=== PATIENT | male | born 1995 | race Caucasian/White ===

== ENCOUNTER 2020-10-02 10:14 | Inpatient (IN) | payer OTHER ==
[2020-10-02] VITALS (7 sets, daily range): BP systolic 97–158; BP diastolic 58–109
[~2020-10-02] VITALS: Ht 182.9 cm; Wt 163.8 kg
[2020-10-02] MEDS ORDERED: diphenhydrAMINE 50 MG/ML VIAL ONE (10:42)
[2020-10-02] MEDS ORDERED: HALOPERIDOL LACT 5 MG/ML VIAL. ONE (10:42)
--- NOTE | 2020-10-02 10:44 | RAD ---
CT HEAD/BRAIN WO Date: 10/02/2020 10:20 AM Clinical Indication: Reason: seizure, combative, best images obtained / Spl. Instructions: / History : Comparison: None. Technique: 5 mm axial tomographic images were obtained of the head without contrast. These were view ed on brain and bone windows. One or more of the following dose reduction techniques were utilized: A utomated exposure control (AEC), Adjustment of mA and/or kV according to patient size, Use of iterati ve reconstruction technique such as ASiR, CT scan done according to ALARA and image gently/image guidry ly Findings: The brain parenchyma is normal in attenuation. No intra- or extra-axial mass or fluid collection. No acute hemorrhage. The ventricles are normal in size, shape, and morphology. The dahl-white matter christine ction is normal. The subarachnoid cisterns are patent. The visualized paranasal sinuses are normal. The visualized portions of the orbits and globes are no rmal. The mastoid air cells are clear. The supervisor slitting and shipping topogram shows no lytic lesion or fracture. Impression: No acute intracranial process. Electronically signed by: Kade Lozada MD (10/02/2020 10:41 AM) [id number]
[2020-10-02] MEDS ORDERED: HALOPERIDOL LACT 5 MG/ML VIAL. IM ONE (10:45)
[2020-10-02] MEDS ORDERED: diphenhydrAMINE 50 MG/ML VIAL IM ONE (10:45)
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
[2020-10-02 11:48] LABS: BASO % 0 % (0-3); EOS % 0 % (0-3); HEMATOCRIT 43.3 % (39.0-53.0); HEMOGLOBIN 14.3 g/dL (13.0-17.5); LYMPH # 0.7 x10^3/uL (1.0-4.8); LYMPH % 7 % (24-48); MEAN CORPUSCULAR HEMOGLOBIN 30 pg (25-35); MEAN CORPUSCULAR HGB CONC 33 g/dL (31-37); MEAN CORPUSCULAR VOLUME 91 fL (79-100); MONO # 0.7 x10^3/uL (0.0-1.1); MONO % 7 % (0-9); NEUT # 8.5 x10^3uL (1.8-7.7); NEUT % 85 % (31-73); PLATELET COUNT 248 x10^3/uL (140-400); RED BLOOD COUNT 4.74 x10^6/uL (4.30-5.70)
[2020-10-02 12:05] LABS: CALCIUM 8.9 mg/dL (8.5-10.1); CREATININE 1.2 mg/dL (0.7-1.3); GFR 73.8
[2020-10-02 12:10] LABS: ALBUMIN 4.2 g/dL (3.4-5.0); ALBUMIN/GLOBULIN RATIO 1.2 (1.0-1.7); MAGNESIUM 2.5 mg/dL (1.8-2.4); TOTAL BILIRUBIN 0.6 mg/dL (0.2-1.0); TOTAL PROTEIN 7.7 g/dL (6.4-8.2)
[2020-10-02] MEDS ORDERED: ZIPRASIDONE IM 20 MG VIAL. IM ONE (13:45)
[2020-10-02] MEDS ORDERED: IV RINGERS SOLUTION,LACTATED 1,000 ML IV ONE ×3 (14:15→17:15)
[2020-10-02] MEDS ORDERED: IV NORMAL SALINE 250ML 250 ML ONE (14:57)
[2020-10-02] MEDS ORDERED: NORMAL SALINE IV ONE (15:00)
[2020-10-02] MEDS ORDERED: DEXMEDETOMIDINE IV ONE (15:00)
[2020-10-02] MEDS ORDERED: PHYSOSTIGMINE 2 MG/2 ML AMPUL. IV ONE (15:00)
[2020-10-02 15:05] LABS: ACETAMIN < 2.0 mcg/mL (10-30); SALIC < 2.8 mg/dL (2.8-20.0)
--- NOTE | 2020-10-02 15:38 | EKG ---
[address] [address] Test Date: 2020-10-02 Test Time: 15:28:39 Pat Name: PABLO JACKSON Department: Room: Gender: M Prep Manager: DUSTY : 1995 Requested By: LEE BENTON Order Number: [id number] Reading MD: Measurements Intervals [place] Rate: 102 P: 54 SC: 132 QRS: 34 QRSD: 96 T: 24 QT: 372 QTc: 489 Interpretive Statements SINUS TACHYCARDIA OTHERWISE NORMAL ECG RI6.02 No previous ECG available for comparison
[2020-10-02] MEDS ORDERED: ONDANSETRON PF 4 MG/2 ML VIAL. IVP PRN (15:45)
[2020-10-02 17:35] LABS: CLARITY,URINE CLEAR; COLOR,URINE YELLOW; GLUCOSE,URINE >=1000 mg/dL (NEG)
[2020-10-02 17:36] LABS: BACTERIA,URINE 0 /HPF (0-FEW); BILIRUBIN,URINE NEG (NEG); NITRITE,URINE NEG (NEG); RBC,URINE 0 /HPF (0-2); UROBILINOGEN,URINE 0.2 mg/dL (0.2 mg/dL); WBC,URINE 0 /HPF (0-4)
[2020-10-02 17:45] LABS: AMPHETAMINE/METHAMPHETAMINE NEG (NEG); BARBITURATES NEG (NEG); BENZODIAZEPINES POS (NEG); CANNABINOIDS NEG (NEG); COCAINE NEG (NEG); METHADONE NEG (NEG); OPIATES POS (NEG); PHENCYCLIDINE POS (NEG)
--- NOTE | 2020-10-02 19:49 | NUR ---
The patient, PABLO JACKSON, 24 y/o, M admitted by LAKISHA BOWMAN MD, was given written information regarding hospital policies, unit procedures and contact persons. Valuables were checked and logged. Pt is confused and impulsive trying to get up. Reassured pt. Will continue to monitor.
[2020-10-03] VITALS (24 sets, daily range): BP systolic 109–168; BP diastolic 55–116
[2020-10-03] MEDS: DEXMEDETOMIDINE 400 MCG in IV NORMAL SALINE 100ML 96 ML IV PRN ×5 (00:39→20:21)
[2020-10-03 07:11] LABS: BASO # 0.1 x10^3/uL (0.0-0.2); BASO % 1 % (0-3); EOS # 0.1 x10^3/uL (0.0-0.7); EOS % 1 % (0-3); HEMATOCRIT 41.2 % (39.0-53.0); HEMOGLOBIN 13.6 g/dL (13.0-17.5); LYMPH # 1.4 x10^3/uL (1.0-4.8); LYMPH % 13 % (24-48); MEAN CORPUSCULAR HEMOGLOBIN 30 pg (25-35); MEAN CORPUSCULAR HGB CONC 33 g/dL (31-37); MEAN CORPUSCULAR VOLUME 92 fL (79-100); MONO % 9 % (0-9); NEUT # 8.3 x10^3uL (1.8-7.7); NEUT % 77 % (31-73); PLATELET COUNT 228 x10^3/uL (140-400); WHITE BLOOD COUNT 10.8 x10^3/uL (4.0-11.0)
[2020-10-03 07:19] LABS: CALCIUM 8.2 mg/dL (8.5-10.1); CREATININE 1.2 mg/dL (0.7-1.3); GFR 73.8; POTASSIUM 3.6 mmol/L (3.5-5.1)
[2020-10-03] MEDS ORDERED: DOCUSATE SODIUM 100 MG CAPSULE PO PRN (09:15)
[2020-10-03] MEDS ORDERED: CITA10TA8 PO (10:18)
[2020-10-03] MEDS ORDERED: LORA-254 PO (10:18)
[2020-10-03] MEDS ORDERED: ROPI1TAB4 PO (10:18)
[2020-10-03] MEDS ORDERED: BREX2TAB PO (10:18)
[2020-10-03] MEDS ORDERED: ZIPRASIDONE IM 20 MG VIAL. IM PRN (15:45)
[2020-10-03] MEDS: IV NORMAL SALINE 1,000ML 1,000 ML IV SCH (16:15)
[2020-10-03] MEDS ORDERED: DEXTROSE 50% 25 GM / 50ML DISP.SYRIN. IV PRN (16:15)
[2020-10-03] MEDS: INSULIN LISPRO 300 UNITS/3 ML VIAL. SQ SCH (17:39)
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
--- NOTE | 2020-10-03 19:51 | PN ---
DATE: 10/03/2020 SUBJECTIVE: The patient is resting, slightly propped up in bed, in no apparent respiratory distress. He is awake, alert, responding at times appropriately. According to the nursing staff, he continued to have episodes of restlessness, agitation, attempts to get out of the bed; however, he continued to be on Precedex and lorazepam. He requests to take the Raymundo catheter out. Unfortunately, he retained urine again and a Raymundo catheter was to be inserted again and about 1500 mL of urine were drained. He was able to eat and drink and has multiple snacks and drank slight amount of water. PHYSICAL EXAMINATION: GENERAL: When I examined him this afternoon, he looked well and was clearly in no apparent respiratory distress. No pallor, jaundice, cyanosis or thyromegaly. No jugular venous distention. No lower limb edema. VITAL SIGNS: His heart rate was 107, blood pressure was 163/105, temperature was 98.8, respiratory rate was 18 and oxygen saturation was 90% on 5 liters of oxygen. HEAD, EYES, EARS, NOSE AND THROAT: Showed normocephalic, atraumatic. NECK: Supple. HEART: Normal first and second heart sounds. No gallop, rub or murmur. CHEST: Clear to auscultation. No crepitation or rhonchi. ABDOMEN: Distended, soft, nontender. NEUROLOGIC: He was grossly intact. His intake and output incompletely recorded. LABORATORY DATA: His lab work this morning showed his white cell count was 10,800; hemoglobin 13.6; hematocrit 41; MCV 92; and platelet count 228,000. His chemistry this morning showed a serum sodium 136, potassium 3.6, chloride 99, bicarbonate 29, anion gap of 8, BUN 15, creatinine 1.2, estimated GFR was 73 mL per minute. His glucose was 264, calcium was 8.2. His creatinine is steadily rising. His CK this morning was 4164. In summary, this is a 24-year-old male patient with: 1. Schizophrenia, for which he normally is on Rexulti 2 mg once a day. He has also depression and anxiety, for which he is on citalopram and lorazepam. He is also on Requip, which is usually given for restless legs syndrome. Other medical problems include rhabdomyolysis. He has also hyperglycemia, likely type 2 diabetes and lactic acidosis that has resolved. PLAN: I spoke with his mom and she will bring his Rexulti, which is the medication used for his schizophrenia. We will continue his citalopram, allopurinol, and lorazepam. When I reviewed all his lab work again, I will change his IV fluid to normal saline and we will also do Accu-Cheks before meals and bedtime. LAKISHA BOWMAN MD DR: KAMLESH/deandre JOB#: [id number] / [id number]
--- NOTE | 2020-10-03 22:38 | NUR ---
Pt became agitated and raised fists to this nurse and yells, "CALL MY MOM! IT IS URGENT!" This nurse reassured pt and tried to get pt to relax. Got pt laying back down. PRN ativan given per EMAR. Will continue to monitor.
[2020-10-04] VITALS (23 sets, daily range): BP systolic 117–168; BP diastolic 73–138
[2020-10-04] MEDS: DEXMEDETOMIDINE 400 MCG in IV NORMAL SALINE 100ML 96 ML IV PRN ×4 (00:34→20:32)
--- NOTE | 2020-10-04 02:16 | NUR ---
Pt gets agitated when told no. Pt asked to call family members at this time and pt states, "I don't care they are up!" Pt also states, "I don't need oxygen I'm fine." Pt's sats are 84% on room air. Will continue to monitor.
[2020-10-04] MEDS: IV NORMAL SALINE 1,000ML 1,000 ML IV SCH ×3 (03:12→20:33)
--- NOTE | 2020-10-04 04:30 | NUR ---
Pt moved his nasal cannula up on top of his head and states, "this is the only way I can get your attention."
[2020-10-04 05:28] LABS: BGAS PH 7.45 (7.35-7.46)
--- NOTE | 2020-10-04 05:49 | NUR ---
Notified of pt's low oxygen sats. ABG ordered and performed. Orders given. Pt is on a non-rebreather at this time. told this nurse to call poison control and to call PAT in the am. Will continue to monitor.
[2020-10-04] MEDS: HALOPERIDOL LACT 5 MG/ML VIAL. IVP PRN ×3 (06:21→18:18)
[2020-10-04] MEDS ORDERED: POLYETHYLENE GLYCOL 3350 17 GM PACKET. PO PRN (07:15)
[2020-10-04] MEDS: INSULIN LISPRO 300 UNITS/3 ML VIAL. SQ SCH ×3 (07:38→17:48)
[2020-10-04] MEDS: rOPINIRole 1 MG TABLET. PO SCH (07:41)
[2020-10-04] MEDS ORDERED: IOHEXOL 350 MG/ML 100 ML VIAL. IV ONE (08:00)
--- NOTE | 2020-10-04 08:00 | NUR ---
PT IS SHOUTING AT STAFF AND PULLED OUT AN IV PER NURSING STAFF LAST NIGHT. PT IS PULLING AT CORDS AND WILL NOT KEEP MONITORING ON AND CONTINUES TO NEED 15 L OF 02 VIA NRB. PT IS IMPULSIVE AND WILL JUMP OUT OF BED. CALLED DR. BOWMAN DUE TO PT'S STATUS OF INCREASING NEED FOR OXYGEN. DR. BOWMAN ORDERED CT CHEST. WILL CTM.
[2020-10-04 08:09] LABS: BASO % 0 % (0-3); EOS # 0.1 x10^3/uL (0.0-0.7); EOS % 1 % (0-3); HEMATOCRIT 42.3 % (39.0-53.0); HEMOGLOBIN 13.8 g/dL (13.0-17.5); LYMPH # 1.3 x10^3/uL (1.0-4.8); LYMPH % 8 % (24-48); MEAN CORPUSCULAR HEMOGLOBIN 30 pg (25-35); MEAN CORPUSCULAR HGB CONC 33 g/dL (31-37); MEAN CORPUSCULAR VOLUME 91 fL (79-100); MONO % 7 % (0-9); NEUT # 12.8 x10^3uL (1.8-7.7); NEUT % 84 % (31-73); PLATELET COUNT 218 x10^3/uL (140-400); RED BLOOD COUNT 4.65 x10^6/uL (4.30-5.70); RED CELL DISTRIBUTION WIDTH 14.1 % (11.5-14.5); WHITE BLOOD COUNT 15.2 x10^3/uL (4.0-11.0)
[2020-10-04 08:26] LABS: CALCIUM 8.1 mg/dL (8.5-10.1); CREATININE 1.2 mg/dL (0.7-1.3); GFR 73.8; POTASSIUM 3.7 mmol/L (3.5-5.1)
--- NOTE | 2020-10-04 09:52 | RAD ---
CTA CHEST History: Cough. Hypoxia. Technique: CT of the chest was performed with intravenous contrast. PE protocol. Maximum intensity pr ojection coronal and sagittal reconstructions were performed. Exposure: One or more of the following individualized dose reduction techniques were utilized for thi s examination: 1. Automated exposure control 2. Adjustment of the mA and/or kV according to patient size 3. Use of iterative reconstruction technique. Comparison: None Findings: Chest: No large central pulmonary embolus although evaluation for distal pulmonary emboli is degraded by respiratory motion. No pathologic lymphadenopathy. Multifocal groundglass opacities and consolidations most prominent within the upper lobes and superio r segment of the lower lobes. No pleural effusion. No pneumothorax. Upper abdomen: Severe hepatic steatosis. Increased density within the gallbladder. No gallbladder wal l thickening. Bones: No pathologic osseous lesions. Impression: 1. No large central pulmonary embolus although evaluation for distal pulmonary emboli is degraded by respiratory motion. If persistent clinical concern, recommend follow-up. 2. Multifocal pulmonary consolidations, concerning for pneumonia including viral pneumonia. 3. Hepatic steatosis. 4. Increased density within the gallbladder, may represent sludge. Electronically signed by: Fer Lora DO (10/04/2020 9:49 AM) [facility]
[2020-10-04] MEDS ORDERED: AZITHROMYCIN 500 MG in IV NORMAL SALINE 250ML 250 ML IV ONE (10:30)
[2020-10-04] MEDS ORDERED: AZITHROMYCIN 250 MG TABLET. PO ONE (10:45)
[2020-10-04] MEDS: DEXAMETHASONE SOD PHOS 10 MG/ML VIAL. IVP SCH (11:16)
[2020-10-04 11:35] LABS: % ATYL 2 % (0-0); % BANDS 3 % (0-9); % BASOS 1 % (0-3); % LYMPHS 6 % (24-48); % MONOS 5 % (0-10); % SEGS 83 % (35-66)
[2020-10-04 11:37] LABS: PLT ESTIMATE ADEQUATE (ADEQUATE)
--- NOTE | 2020-10-04 12:00 | NUR ---
PT WILL HAVE INTERMITTENT TIMES WHERE HE IS ALERT AND ORIENTED X 2-3 BUT THEN WILL HAVE OUTBURTS OF ANGER, YELLING AT STAFF AND TRYING TO DEMAND THINGS. PT STATES " I WANT WATER NOW, I NEED TO GET UP RIGHT NOW!!!!" PT IS ON A PRECEDEX DRIP WITH TITRATION AND WILL CTM.
[2020-10-04] MEDS ORDERED: REMDESIVIR LOAD in IV NORMAL SALINE 250ML TV IV ONE (14:00)
--- NOTE | 2020-10-04 15:57 | PN ---
DATE: 10/04/2020 SUBJECTIVE: The patient is resting, slightly propped up, clearly tachypneic, hypoxic. His oxygen requirement has dramatically increased this morning. He was on 6 liters yesterday, and earlier this morning, his oxygen requirement has dramatically increased. His requirement has now increased such that he is now on 100% nonrebreather mask and also on 15 liters by nasal cannula, maintaining his oxygen saturation around 90%-92%. He apparently ate some of his breakfast this morning and has at least two loose bowel movements this morning. Given the dramatic increase in his oxygen requirement, we did actually a CT angio of the chest, which showed that he has no large central pulmonary embolus, although evaluation for distal pulmonary emboli is degraded by respiratory motion. If persistent clinical concern, recommend followup. He has multifocal pulmonary consolidation concerning for pneumonia including viral pneumonia. He has hepatic steatosis. Increased density within the gallbladder may represent sludge. Therefore, the patient was swabbed for COVID-19 pneumonia. We did put him on droplet precaution and we did start him on Zithromax, ceftriaxone, dexamethasone, and also ordered remdesivir. OBJECTIVE: VITAL SIGNS: When I saw him this afternoon, his heart rate was 98, blood pressure was 165/107, temperature was 98.3, respiratory rate 40, and oxygen saturation was 92% on 15 liters by nasal cannula. HEAD, EYES, EARS, NOSE, AND THROAT: Showed normocephalic, atraumatic. NECK: Supple. HEART: Normal first and second heart sounds. No gallop or murmur. CHEST: Shows central trachea. Equal bilateral chest expansion, air entry, vesicular sounds. I could not really appreciate any crepitation or rhonchi anteriorly. ABDOMEN: Distended, soft, nontender. NEUROLOGIC: He is confused, hallucinating, but all his cranial nerves are intact. He moves extremities without difficulty. He managed to get out of the bed to bedside commode. As he is retaining urine, he has an indwelling Raymundo catheter. His intake over last 24 hours was 3100, output was 2425. LABORATORY DATA: His lab work this morning showed a white cell count of 15,200, hemoglobin 13.8, hematocrit 42, MCV 91, and platelet count 218,000. His serum sodium was 133, potassium 3.7, chloride 98, bicarbonate 24, anion gap of 11, BUN 11, creatinine 1.2, estimated GFR was 74 mL per minute, his glucose was 235, calcium was 8.1. CK was down to 2674. His CT angio of the chest showed no large central pulmonary embolus, although evaluation for distal pulmonary emboli is degraded by respiratory motion. He has multifocal pulmonary consolidation concerning for pneumonia including viral pneumonia. He has hepatic steatosis and increased density within the gallbladder may represent sludge. ASSESSMENT: In summary, this is a 24-year-old male patient who was originally admitted with an overdose on dextromethorphan as well as PCP. He was extremely agitated and therefore, he was on Precedex and required multiple doses of Ativan. His oxygen requirement yesterday was only 6 liters; however, today, his oxygen requirement has dramatically risen. He is tachypneic and hypoxic, requiring 100% nonrebreather mask. CT angio chest showed no evidence of pulmonary emboli, but multifocal pulmonary consolidation concerning for pneumonia including viral pneumonitis. PLAN: We did start him on dexamethasone, IV ceftriaxone as well as Zithromax and Lovenox and also remdesivir, but I will arrange for him to be transferred to [facility], as he probably likely will require intubation and mechanical ventilation. LAKISHA BOWMAN MD DR: KAMLESH/deandre JOB#: [id number] / [id number]
[2020-10-04 17:48] LABS: CALCIUM 8.4 mg/dL (8.5-10.1); CREATININE 1.1 mg/dL (0.7-1.3); GFR 81.6; POTASSIUM 4.1 mmol/L (3.5-5.1)
[2020-10-04] MEDS ORDERED: ACETAMINOPHEN 325 MG TABLET PO ONE (18:00)
[2020-10-04] MEDS ORDERED: ACETAMINOPHEN 325 MG TABLET PO PRN (19:15)
[2020-10-04] MEDS: ENOXAPARIN ** NOTE DOSE ** SYRINGE SQ SCH (20:32)
[2020-10-05] VITALS (12 sets, daily range): BP systolic 129–153; BP diastolic 83–99
[2020-10-05] MEDS: DEXMEDETOMIDINE 400 MCG in IV NORMAL SALINE 100ML 96 ML IV PRN ×2 (00:46→06:19)
[2020-10-05 02:06] LABS: HEMOGLOBIN A1C 5.9 % (4.8-5.6)
[2020-10-05] MEDS: IV NORMAL SALINE 1,000ML 1,000 ML IV SCH ×2 (03:17→13:17)
[2020-10-05 06:34] LABS: ALBUMIN 3.1 g/dL (3.4-5.0); ALBUMIN/GLOBULIN RATIO 0.7 (1.0-1.7); CALCIUM 8.2 mg/dL (8.5-10.1); TOTAL BILIRUBIN 0.5 mg/dL (0.2-1.0); TOTAL PROTEIN 7.4 g/dL (6.4-8.2)
[2020-10-05] MEDS: INSULIN LISPRO 300 UNITS/3 ML VIAL. SQ SCH ×3 (08:00→17:56)
[2020-10-05] MEDS: ENOXAPARIN ** NOTE DOSE ** SYRINGE SQ SCH ×2 (09:00→20:16)
[2020-10-05] MEDS ORDERED: CITALOPRAM 20 MG TABLET. PO SCH (09:00)
[2020-10-05] MEDS ORDERED: AZITHROMYCIN 250 MG TABLET. PO SCH (09:00)
[2020-10-05] MEDS ORDERED: NON FORMULARY ITEM (Brexpiprazole (Rexulti) 1 TAB) PO SCH (09:00)
[2020-10-05] MEDS: DEXAMETHASONE SOD PHOS 10 MG/ML VIAL. IVP SCH (09:00)
[2020-10-05] MEDS: rOPINIRole 1 MG TABLET. PO SCH (09:00)
[2020-10-05] MEDS: HALOPERIDOL LACT 5 MG/ML VIAL. IVP PRN (09:40)
[2020-10-05] MEDS ORDERED: LORazepam 1 MG TABLET ONE (10:27)
[2020-10-05] MEDS ORDERED: AZITHROMYCIN 250 MG in IV NORMAL SALINE 250ML 250 ML IV SCH (10:30)
[2020-10-05] MEDS ORDERED: REMDESIVIR 100mg in NORMAL SALINE 250ML X 4 DAYS IV SCH (14:00)
[2020-10-05] MEDS: LOPERAMIDE 2 MG CAPSULE PO PRN ×2 (14:15→17:49)
[2020-10-05] MEDS ORDERED: LORazepam 1 MG TABLET PO PRN ×2 (15:00→19:15)
[2020-10-05 16:08] LABS: BGAS PH 7.5 (7.35-7.46)
[2020-10-05] MEDS ORDERED: diphenhydrAMINE 50 MG/ML VIAL ONE (16:47)
[2020-10-05] MEDS ORDERED: diphenhydrAMINE HCL 25 MG CAPSULE PO PRN (17:00)
[2020-10-05] MEDS ORDERED: diphenhydrAMINE 50 MG/ML VIAL IVP ONE (18:30)
--- NOTE | 2020-10-05 23:50 | NUR ---
Patient restless and anxious, continually getting out of bed to walk around the room. Patient will not follow directions, is argumentative and noncompliant. Patient removed telemetry leads at 2235, refuses to have them placed back on. Explained to patient the need for monitoring, patient still refuses to comply. Patient pulled out his IV, has now removed 4 IVs in the last 24 hours. Behaviors appear to be intentional as patient is able to use his phone at will without assistance and is alert and oriented to person, place, and situation.
--- NOTE | 2020-10-06 04:29 | PN ---
DATE: 10/05/2020 SUBJECTIVE: The patient was on Precedex drip that apparently depressed his ventilation and was hypoxic, so the Precedex was discontinued. Unfortunately, he became very agitated, restless, anxious, and was given Haldol 5 mg intramuscular. The patient developed acute dystonia with oculogyric crisis and tongue protrusion. He also was very tachypneic, hyperventilating. We did actually blood gases which showed his pH was 7.50, pCO2 of 24, pO2 of 65, bicarbonate was 19 and oxygen saturation was 95% on room air. OBJECTIVE: GENERAL: When I examined him this afternoon, he looked well and he was clearly tachypneic. There is no pallor, jaundice, cyanosis or thyromegaly. No jugular venous distention. No lower limb edema. VITAL SIGNS: His heart rate was 111, blood pressure was 137/83, temperature was 98.1, respiratory rate was 40 and oxygen saturation was 99% on room air. HEAD, EYES, EARS, NOSE AND THROAT: Showed he is normocephalic, atraumatic. NECK: Supple. HEART: Showed normal first and second heart sounds. No gallop, rub or murmur. CHEST: Showed central trachea, equal bilateral chest expansion, air entry, vesicular sounds. No crepitation or rhonchi. ABDOMEN: Distended, soft, nontender. NEUROLOGIC: He was awake, alert, but he rolled his eyes up. He is also protruding his tongue and clenching his teeth, all characteristic signs of acute dystonia likely related to his treatment with Haldol. His intake was 10,800, output was 9025. LABORATORY DATA: His lab work as of yesterday showed a white cell count 15,200, hemoglobin 14, hematocrit 42, MCV 91, and a platelet count 218,000. His chemistry this morning showed a serum sodium 135, potassium 4, chloride 100, bicarbonate 23, anion gap of 12, BUN 12, creatinine 1, estimated GFR was 91 mL per minute. His glucose was 190, calcium was 8.2. Total bilirubin and alkaline phosphatase normal. AST, ALT slightly elevated. Total protein 7.4, albumin was 3.1. ASSESSMENT: This is a 24-year-old male patient who was admitted with: 1. An overdose of dexamethasone as well as PCP. The [facility] stated that there is no specific antidote and by the time he was seen here, the PCP has no longer effect on him. 2. The patient was extremely agitated and therefore, he was started on Precedex and required multiple doses of Ativan. 3. His oxygen requirement on admission yesterday has dramatically increased to almost 15 liters. He was tachypneic, hypoxic, requiring 100% nonrebreather mask. His CT angio of the chest showed no evidence of pulmonary emboli, but multifocal pulmonary consolidation concerning for pneumonia including viral pneumonia. 4. When we discontinued his Precedex, his oxygen requirement has dramatically improved, but the patient became very anxious and agitated and was given a dose of Haldol 5 mg intravenously. Unfortunately, he developed acute dystonia, manifested by protruding his tongue, clenching his teeth and also has oculogyric crisis for which we gave him 50 mg of IV diphenhydramine. 5. Other issues, obviously he has morbid obesity and probably obstructive sleep apnea, schizophrenia, and type 2 diabetes mellitus with hyperglycemia that is probably made worse by dexamethasone. PLAN: To continue with IV dexamethasone, continue with IV ceftriaxone, continue with Zithromax, continue with Lovenox and we did actually start him on remdesivir, although apparently his coronavirus PCR not detectable. I did give him 50 mg IV diphenhydramine and we will switch him to oral Benadryl. I did consult Dr. Cameron to see him as well as Dr. Lpoez to assist with his management. LAKISHA BOWMAN MD DR: KAMLESH/deandre JOB#: [id number] / [id number]
[2020-10-06 06:02] LABS: HEMATOCRIT 42.2 % (39.0-53.0); RED BLOOD COUNT 4.63 x10^6/uL (4.30-5.70); RED CELL DISTRIBUTION WIDTH 13.9 % (11.5-14.5); WHITE BLOOD COUNT 15.4 x10^3/uL (4.0-11.0)
[2020-10-06 06:15] LABS: ALBUMIN 3.2 g/dL (3.4-5.0); ALBUMIN/GLOBULIN RATIO 0.8 (1.0-1.7); CALCIUM 8.5 mg/dL (8.5-10.1); POTASSIUM 3.9 mmol/L (3.5-5.1); TOTAL BILIRUBIN 0.4 mg/dL (0.2-1.0); TOTAL PROTEIN 7.3 g/dL (6.4-8.2)
[2020-10-06 10:30] VITALS: BP 151/98
[2020-10-06] MEDS ORDERED: CEFD300C PO (12:14)
[2020-10-06] MEDS ORDERED: AZIT250T PO (12:16)
[2020-10-06] MEDS ORDERED: DIPH25CA58 PO (12:19)
[2020-10-06] MEDS ORDERED: LORA-254 PO (12:21)
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
--- NOTE | 2020-10-06 22:39 | PDOC ---
Exam Note: Massimo Note: Late entry for 10/05/2020. Please also refer to the separate dictated note~for this date of service dictated separately.~Patient seen individually. Discussed the patient with Nursing staff reviewed the chart.~Reviewed interim history and current functioning. Reviewed vital signs,~Labs/ Radiology~and current medic ations noted below. Continue current treatment with the changes noted in the dictated addendum note Assessment: Vital Signs/I&O: Vital Signs Date Time Temp Pulse Resp B/P (MAP) Pulse Ox O2 Delivery O2 Flow Rate FiO2 10/06/20 10:30 97.7 105 20 151/98 (115) 95 Room Air 10/05/20 08:00 12.0 I & O0 10/05/20 10/05/20 10/06/20 15:00 23:00 07:00 Intake Total 1050 ml 550 ml Output Total 2100 ml Balance -1050 ml 550 ml Labs: Laboratory Tests Test 10/06/20 05:55 10/06/20 09:01 10/06/20 11:49 White Blood Count 15.4 x10^3/uL (4.0-11.0) H Red Blood Count 4.63 x10^6/uL (4.30-5.70) Hemoglobin 14.0 g/dL (13.0-17.5) Hematocrit 42.2 % (39.0-53.0) Mean Corpuscular Volume 91 fL (79-100) Mean Corpuscular Hemoglobin 30 pg (25-35) Mean Corpuscular Hemoglobin Concent 33 g/dL (31-37) Red Cell Distribution Width 13.9 % (11.5-14.5) Platelet Count 310 x10^3/uL (140-400) Sodium Level 137 mmol/L (136-145) Potassium Level 3.9 mmol/L (3.5-5.1) Chloride Level 102 mmol/L (98-107) Carbon Dioxide Level 24 mmol/L (21-32) Anion Gap 11 (6-14) Blood Urea Nitrogen 14 mg/dL (8-26) Creatinine 1.0 mg/dL (0.7-1.3) Estimated GFR (Cockcroft-Gault) 91.0 BUN/Creatinine Ratio 14 (6-20) Glucose Level 192 mg/dL (70-99) H Calcium Level 8.5 mg/dL (8.5-10.1) Total Bilirubin 0.4 mg/dL (0.2-1.0) Aspartate Amino Transferase (AST) 31 U/L (15-37) Alanine Aminotransferase (ALT) 76 U/L (16-63) H Alkaline Phosphatase 77 U/L (46-116) Total Protein 7.3 g/dL (6.4-8.2) Albumin 3.2 g/dL (3.4-5.0) L Albumin/Globulin Ratio 0.8 (1.0-1.7) L Glucose (Fingerstick) 254 mg/dL (70-99) H 178 mg/dL (70-99) H Current Medications: Meds: Laboratory Tests Test 10/06/20 05:55 10/06/20 09:01 10/06/20 11:49 White Blood Count 15.4 x10^3/uL Red Blood Count 4.63 x10^6/uL Hemoglobin 14.0 g/dL Hematocrit 42.2 % Mean Corpuscular Volume 91 fL Mean Corpuscular Hemoglobin 30 pg Mean Corpuscular Hemoglobin Concent 33 g/dL Red Cell Distribution Width 13.9 % Platelet Count 310 x10^3/uL Sodium Level 137 mmol/L Potassium Level 3.9 mmol/L Chloride Level 102 mmol/L Carbon Dioxide Level 24 mmol/L Anion Gap 11 Blood Urea Nitrogen 14 mg/dL Creatinine 1.0 mg/dL Estimated GFR (Cockcroft-Gault) 91.0 BUN/Creatinine Ratio 14 Glucose Level 192 mg/dL Calcium Level 8.5 mg/dL Total Bilirubin 0.4 mg/dL Aspartate Amino Transf (AST/SGOT) 31 U/L Alanine Aminotransferase (ALT/SGPT) 76 U/L Alkaline Phosphatase 77 U/L Total Protein 7.3 g/dL Albumin 3.2 g/dL Albumin/Globulin Ratio 0.8 Glucose (Fingerstick) 254 mg/dL 178 mg/dL Current Medications Medications (Trade) Dose Ordered Sig/Rica Route PRN Reason Start Time Stop Time Status Last Admin Dose Admin Diphenhydramine HCl (Benadryl) 50 mg STK-MED ONCE .ROUTE 10/02/20 10:42 10/02/20 10:42 DC Haloperidol Lactate (Haldol) 5 mg STK-MED ONCE .ROUTE 10/02/20 10:42 10/02/20 10:42 DC Haloperidol Lactate (Haldol) 5 mg 1X ONCE IM 10/02/20 10:45 10/02/20 12:01 DC 10/02/20 11:33 Diphenhydramine HCl (Benadryl) 50 mg 1X ONCE IM 10/02/20 10:45 10/02/20 12:01 DC 10/02/20 11:33 Lorazepam (Ativan Inj) 2 mg STK-MED ONCE .ROUTE 10/02/20 12:19 10/02/20 12:20 DC Lorazepam (Ativan Inj) 4 mg 1X ONCE IVP 10/02/20 12:30 10/02/20 12:31 DC 10/02/20 12:31 Ziprasidone (Geodon Im) 20 mg 1X ONCE IM 10/02/20 13:45 10/02/20 13:46 DC 10/02/20 13:54 Lorazepam (Ativan Inj) 6 mg 1X ONCE IM 10/02/20 14:15 10/02/20 14:15 DC Lorazepam (Ativan Inj) 2 mg 1X ONCE IVP 10/02/20 14:15 10/02/20 14:32 DC 10/02/20 14:43 Lactated Ringer's 1,000 ml @ 75 mls/hr 1X ONCE IV 10/02/20 14:15 10/02/20 22:25 DC 10/02/20 14:24 Physostigmine Salicylate (Antilirium) 1 mg 1X ONCE IV 10/02/20 15:00 10/02/20 15:01 DC 10/02/20 15:07 Dexmedetomidine HCl 200 mcg/ Sodium Chloride 52 ml @ 24 mls/hr 1X ONCE IV 10/02/20 15:00 10/02/20 17:09 DC Sodium Chloride 250 ml @ As Directed STK-MED ONCE .ROUTE 10/02/20 14:57 10/02/20 14:57 DC Ondansetron HCl (Zofran) 4 mg PRN Q4HRS PRN IVP NAUSEA/VOMITING 10/02/20 15:45 10/03/20 15:44 DC Lactated Ringer's 1,000 ml @ 999 mls/hr 1X ONCE IV 10/02/20 16:00 10/03/20 16:13 DC 10/03/20 11:42 Lactated Ringer's 1,000 ml @ 150 mls/hr 1X ONCE IV 10/02/20 17:15 10/03/20 16:13 DC 10/03/20 00:39 Dexmedetomidine HCl 400 mcg/ Sodium Chloride 100 ml @ 0 mls/hr CONT PRN PRN IV SEDATION 10/02/20 19:30 10/05/20 14:48 DC 10/05/20 06:19 Lorazepam (Ativan Inj) 2 mg PRN Q2HRS PRN IVP ANXIETY / AGITATION 10/02/20 21:30 10/06/20 19:18 DC 10/04/20 04:14 Docusate Sodium (Colace) 100 mg PRN DAILY PRN PO HARD STOOLS 10/03/20 09:15 10/06/20 19:18 DC 10/03/20 10:01 Ziprasidone (Geodon Im) 20 mg PRN Q4HRS PRN IM ANXIETY / AGITATION 10/03/20 15:45 10/04/20 13:22 DC 10/03/20 16:01 Insulin Human Lispro (HumaLOG) 0-7 UNITS TIDWMEALS SQ 10/03/20 17:00 10/06/20 19:18 DC 10/05/20 17:56 Dextrose (Dextrose 50%-Water Syringe) 12.5 gm PRN Q15MIN PRN IV SEE COMMENTS 10/03/20 16:15 10/06/20 19:18 DC Sodium Chloride 1,000 ml @ 100 mls/hr Q10H IV 10/03/20 16:15 10/05/20 19:32 DC 10/04/20 20:33 Citalopram Hydrobromide (CeleXA) 10 mg DAILY PO 10/05/20 09:00 10/06/20 19:18 DC 10/05/20 09:00 Ropinirole HCl (Requip) 1 mg DAILY PO 10/04/20 09:00 10/05/20 19:15 DC 10/05/20 09:00 Haloperidol Lactate (Haldol) 5 mg PRN Q4HRS PRN IVP AGITATION 10/04/20 05:45 10/05/20 18:51 DC 10/05/20 09:40 Polyethylene Glycol (miraLAX) 17 gm PRN DAILY PRN PO CONSTIPATION 10/04/20 07:15 10/06/20 19:18 DC Iohexol (Omnipaque 350 Mg/ml) 100 ml 1X ONCE IV 10/04/20 08:00 10/04/20 08:01 DC 10/04/20 08:00 Dexamethasone Sodium Phosphate (Decadron) 10 mg DAILY IVP 10/04/20 10:45 10/06/20 19:18 DC 10/05/20 09:00 Azithromycin 500 mg/Sodium Chloride 250 ml @ 250 mls/hr 1X ONCE IV 10/04/20 10:30 10/04/20 11:29 UNV Azithromycin 250 mg/Sodium Chloride 250 ml @ 250 mls/hr Q24H IV 10/05/20 10:30 UNV Non-Formulary Medication (Brexpiprazole (Rexulti)) 1 tab DAILY PO 10/05/20 09:00 10/06/20 19:18 DC 10/05/20 09:00 Azithromycin (Zithromax) 500 mg 1X ONCE PO 10/04/20 10:45 10/04/20 10:46 DC 10/04/20 13:48 Azithromycin (Zithromax) 250 mg DAILY PO 10/05/20 09:00 10/06/20 19:18 DC 10/05/20 09:00 Remdesivir 200 mg/ Sodium Chloride 210 ml @ 210 mls/hr 1X ONCE IV 10/04/20 14:00 10/04/20 14:59 DC 10/04/20 15:45 Remdesivir 100 mg/ Sodium Chloride 230 ml @ 460 mls/hr Q24H IV 10/05/20 14:00 10/05/20 14:48 DC Ceftriaxone Sodium 1 gm/ Sodium Chloride 50 ml @ 100 mls/hr Q24H IV 10/04/20 13:45 10/06/20 19:18 DC 10/05/20 17:49 Enoxaparin Sodium (Lovenox 60mg Syringe) 60 mg Q12HR SQ 10/04/20 21:00 10/06/20 19:18 DC 10/05/20 20:16 Acetaminophen (Tylenol) 650 mg PRN Q4HRS ONCE PO 10/04/20 18:00 10/04/20 18:01 DC 10/04/20 17:59 Acetaminophen (Tylenol) 650 mg PRN Q4HRS PRN PO FEVER > 101 10/04/20 19:15 10/06/20 19:18 DC Lorazepam (Ativan) 1 mg STK-MED ONCE .ROUTE 10/05/20 10:27 10/05/20 10:27 DC Loperamide HCl (Imodium) 2 mg PRN Q15MIN PRN PO DIARRHEA 10/05/20 14:00 10/06/20 19:18 DC 10/05/20 17:49 Lorazepam (Ativan) 1 mg PRN Q4HRS PRN PO ANXIETY / AGITATION 10/05/20 15:00 10/05/20 19:35 DC Diphenhydramine HCl (Benadryl) 50 mg STK-MED ONCE .ROUTE 10/05/20 16:47 10/05/20 16:48 DC Diphenhydramine HCl (Benadryl) 50 mg PRN Q6HRS PRN PO ITCHING 10/05/20 17:00 10/06/20 19:18 DC Diphenhydramine HCl (Benadryl) 50 mg 1X ONCE IVP 10/05/20 18:30 10/05/20 18:31 DC 10/05/20 18:30 Lorazepam (Ativan) 1 mg PRN Q6HRS PRN PO ANXIETY / AGITATION 10/05/20 19:15 10/06/20 19:18 DC 10/05/20 20:16 I have reviewed the current psychotropics carefully including drug interactions. Risk benefit ratio favors no change other than as noted in my dictated progress note. Diagnosis: Problems: (1) Schizoaffective disorder, chronic condition with acute exacerbation (2) Dystonia (3) Polysubstance abuse ALICIA CUETO MD Oct 06, 2020 22:39
== END 2020-10-06 13:30 | disposition home or self-care (01) | DRG 918 ==
LOC: ER 10:14 → ICU 15:31
PROVIDERS: ADMIT Internal Medicine; ATTEND Internal Medicine
DX: T38.0X1A Poisoning by glucocorticoids and synthetic analogues, accidental (unintentional), initial encounter (principal); M62.82 Rhabdomyolysis; Z68.42 Body mass index [BMI] 45.0-49.9, adult; F25.9 Schizoaffective disorder, unspecified; F32.9 Major depressive disorder, single episode, unspecified; Z20.822 Contact with and (suspected) exposure to COVID-19; F16.90 Hallucinogen use, unspecified, uncomplicated; G25.81 Restless legs syndrome; E11.65 Type 2 diabetes mellitus with hyperglycemia; K76.0 Fatty (change of) liver, not elsewhere classified; R09.02 Hypoxemia; G24.9 Dystonia, unspecified; E66.01 Morbid (severe) obesity due to excess calories; G47.33 Obstructive sleep apnea (adult) (pediatric); F19.10 Other psychoactive substance abuse, uncomplicated; Z79.899 Other long term (current) drug therapy; Z88.8 Allergy status to other drugs, medicaments and biological substances; Y92.89 Other specified places as the place of occurrence of the external cause; T40.991A Poisoning by other psychodysleptics [hallucinogens], accidental (unintentional), initial encounter; T42.4X1A Poisoning by benzodiazepines, accidental (unintentional), initial encounter; T40.601A Poisoning by unspecified narcotics, accidental (unintentional), initial encounter
CPT/HCPCS: 36415; 36600; 70450; 71275; 80048; 80053; 80307; 80329; 81001; 82550; 82803; 82947; 83036; 83605; 83735; 83874; 84484; 85007; 85025; 85027; 93005; 96361; 96372; 96374; 96375; 96376; 99285; G0480; J0696; J1100; J1200; J1630; J1650; J1815; J2060; J3486; J3490; J7050; J7120; Q0163; Q9967; U0003; J7030